=== PATIENT | male | born 1970 | race Caucasian/White ===

== ENCOUNTER 2018-12-07 14:06 | Emergency (ER) | payer MEDICAID ==
[2018-12-07] MEDS ORDERED: IPRATROPIUM/ALBUTEROL 3 ML NEB INH STA (15:30)
--- NOTE | 2018-12-07 15:36 | XRAY Report ---
Reason: cough/wheeze Procedure Date: 12/07/2018 Accession Number: [id number] / [id number] Procedure: XR - Chest 2 View X-Ray CPT Code: 43199 FULL RESULT: EXAM: CHEST RADIOGRAPHY EXAM DATE: 12/07/2018 03:27 PM. CLINICAL HISTORY: Cough/wheeze. COMPARISON: None. TECHNIQUE: 2 views. FINDINGS: Lungs/Pleura: No focal opacities evident. No pleural effusion. No pneumothorax. Normal volumes. Mediastinum: Heart and mediastinal contours are unremarkable. Other: None. IMPRESSION: No acute cardiopulmonary abnormality. RADIA
--- NOTE | 2018-12-07 16:55 | ED Physician Documentation ---
PD HPI DYSPNEA - Stated complaint Stated Complaint: SOA - Chief complaint Chief Complaint: Resp - History obtained from History obtained from: Patient - History of Present Illness Timing - onset: How many weeks ago (has had asthma symptoms related to [place]. Prior asthma but has not had inhaler. Also hisotry of alcoholism and trying to stop drinking but gets shaky. Trying to get into support groups in [place]. Moved recently to [facility].) Timing - duration: Weeks Timing - details: Gradual onset, Still present, Waxing and waning Inciting event(s): Out of meds, Allergic rxn/anaphylaxis Improved by: Inhaler/neb (when he had it) Associated symptoms: Wheezing. No: Fever, Cough, Hemoptysis Similar symptoms before: Diagnosis (asthma) Recently seen: Not recently seen Review of Systems Constitutional: denies: Fever Nose: denies: Rhinorrhea / runny nose, Congestion Throat: denies: Sore throat Cardiac: denies: Chest pain / pressure Respiratory: reports: Dyspnea, Wheezing. denies: Cough GI: denies: Nausea, Vomiting : denies: Dysuria, Frequency PD PAST MEDICAL HISTORY - Past Medical History Past Medical History: Yes Respiratory: Asthma - Present Medications Home Medications: Ambulatory Orders Medication Instructions Recorded Confirmed Albuterol Sulf [Ventolin Hfa 1 - 2 puffs INH Q4HR PRN #1 inhaler 12/07/18 Inhaler] Cetirizine [ZyrTEC] 10 mg PO DAILY #30 tablet 12/07/18 Dexamethasone [Decadron] 4 mg PO DAILY #5 tablet 12/07/18 chlordiazePOXIDE [Librium] 25 mg PO Q6H PRN #30 capsule 12/07/18 cloNIDine [Catapres] 0.1 mg PO BID #30 tablet 12/07/18 - Allergies Allergies/Adverse Reactions: Allergies Allergy/AdvReac Type Severity Reaction Status Date / Time Iodinated Contrast- Oral and Allergy Respiratory Verified 12/07/18 14:14 IV Dye pseudoephedrine Allergy Hallucinati Verified 12/07/18 14:14 ons shellfish derived Allergy Respiratory Verified 12/07/18 14:14 - Social History Does the pt smoke?: No Smoking Status: Never smoker PD ED PE NORMAL - Vitals Vital signs reviewed: Yes - General General: Alert and oriented X 3, No acute distress, Well developed/nourished - HEENT HEENT: Ears normal, Pharynx benign - Neck Neck: Supple, no meningeal sign, No adenopathy - Cardiac Cardiac: RRR, No murmur - Respiratory Respiratory: No respiratory distress, Other (wheezing diffusely, no coarse sounds. ) - Abdomen Abdomen: Soft, Non tender - Derm Derm: Normal color, Warm and dry - Extremities Extremities: No edema, No calf tenderness / cord Results - Vitals Vitals: Oxygen O2 Source Room air PD MEDICAL DECISION MAKING - ED course Complexity details: considered differential (main complaint is exac of asthma. Also saying he would like to stop alcohol but concerned about withdrawal. I offered meds for withdrawal. He is seeking AA and support groups. ), d/w patient Departure - Departure Disposition: 01 Home, Self Care Clinical Impression: Alcoholism /alcohol abuse Acute asthma exacerbation Qualifiers: Asthma severity: mild Asthma persistence: intermittent Qualified Code(s): J45.21 - Mild intermittent asthma with (acute) exacerbation Condition: Stable Record reviewed to determine appropriate education?: Yes Instructions: ED Reactive Airway Disease Follow-Up: [facility] [Provider Group] Prescriptions: Albuterol Sulf [Ventolin Hfa Inhaler] 1 - 2 puffs INH Q4HR PRN #1 inhaler PRN Reason: Shortness Of Air/Wheezing Cetirizine [ZyrTEC] 10 mg PO DAILY #30 tablet chlordiazePOXIDE [Librium] 25 mg PO Q6H PRN #30 capsule PRN Reason: Anxiety cloNIDine [Catapres] 0.1 mg PO BID #30 tablet Dexamethasone [Decadron] 4 mg PO DAILY #5 tablet Comments: Stop alcohol. Use the Librium as needed for withdrawal symptoms enough to not feel shaky and tapering the dose over the following week. Clonidine twice daily to help with symptoms as well and blood pressure. For your asthma, use albuterol inhaler 2 puffs 4 times a day as needed and extra times for wheezing. Decadron steroid daily for 5 more days. Cetirizine antihistamine daily for a month. Follow-up with a local clinic. Also follow-up with some of the substance abuse programs available in [place]. Discharge Date/Time: 12/07/18 17:47
[2018-12-07 17:53] VITALS: BP 157/92
== END 2018-12-07 17:47 | disposition home or self-care (01) ==
LOC: ED 14:06
DX: J45.21 Mild intermittent asthma with (acute) exacerbation (principal); F10.20 Alcohol dependence, uncomplicated
CPT/HCPCS: 71046; 94640; 99283

== ENCOUNTER 2018-12-24 07:32 | Emergency (ER) | payer MEDICAID ==
[2018-12-24] MEDS ORDERED: IPRATROPIUM/ALBUTEROL 3 ML NEB INH STA (07:51)
[2018-12-24] MEDS ORDERED: CHERRY SYRUP 10 ML UDC PO ONE (07:52)
[2018-12-24] MEDS ORDERED: DEXAMETHASONE 10 MG/ML VIAL PO STA (07:52)
--- NOTE | 2018-12-24 07:54 | ED Physician Documentation ---
PD HPI DYSPNEA - Stated complaint Stated Complaint: DIFF BREATHING - Chief complaint Chief Complaint: Resp - History obtained from History obtained from: Patient - History of Present Illness Timing - onset: How many months ago (Onset about three months ago.) Timing - details: Waxing and waning (Worse this morning.) Associated symptoms: Wheezing. No: Fever, Chest pain / discomfort Similar symptoms before: Diagnosis (Asthma) - Treatment prior to arrival Treatment prior to arrival: Here two weeks ago with similar symptoms. - Additional information Additional information: The patient is a 48-year-old asthmatic alcoholic, who presents with difficulty breathing. He has had shortness of breath waxing and waning for the past 3 months, but worse this morning. He has had nonproductive cough. He denies fever or chest pain. Review of his medical records reveals he was seen here 2 weeks ago with similar symptoms. He was treated with nebulizer and steroid therapy. He has been using albuterol inhaler this morning without relief. Review of Systems Constitutional: denies: Fever Ears: denies: Tinnitus/ringing Nose: denies: Congestion Throat: denies: Sore throat Cardiac: denies: Chest pain / pressure Respiratory: reports: Dyspnea, Wheezing. denies: Cough GI: denies: Abdominal Pain, Nausea, Vomiting : denies: Dysuria Skin: denies: Rash Musculoskeletal: denies: Back pain, Extremity pain, Extremity swelling Neurologic: denies: Focal weakness, Numbness, Headache PD PAST MEDICAL HISTORY - Past Medical History Past Medical History: Yes Respiratory: Asthma Endocrine/Autoimmune: None - Past Surgical History Past Surgical History: No - Present Medications Home Medications: Ambulatory Orders Medication Instructions Recorded Confirmed Albuterol Sulf [Ventolin Hfa 1 - 2 puffs INH Q4HR PRN #1 inhaler 12/07/18 Inhaler] Cetirizine [ZyrTEC] 10 mg PO DAILY #30 tablet 12/07/18 cloNIDine [Catapres] 0.1 mg PO BID #30 tablet 12/07/18 Albuterol Sulf [Ventolin Hfa 1 - 2 puffs INH Q4HR PRN #1 inhaler 12/24/18 Inhaler] chlordiazePOXIDE [Librium] 5 mg PO Q6H PRN #10 capsule 12/24/18 predniSONE [Prednisone] 40 mg PO DAILY #10 tablet 12/24/18 - Allergies Allergies/Adverse Reactions: Allergies Allergy/AdvReac Type Severity Reaction Status Date / Time Iodinated Contrast- Oral and Allergy Respiratory Verified 12/24/18 07:37 IV Dye pseudoephedrine Allergy Hallucinati Verified 12/24/18 07:37 ons shellfish derived Allergy Respiratory Verified 12/24/18 07:37 - Social History Does the pt smoke?: No Smoking Status: Former smoker Does the pt drink ETOH?: Yes Does the pt have substance abuse?: No - Immunizations Immunizations are current?: Yes PD ED PE NORMAL - Vitals Vital signs reviewed: Yes (hypertensive) - General General: Alert and oriented X 3, Well developed/nourished - HEENT HEENT: Atraumatic, EOMI, Pharynx benign - Neck Neck: Supple, no meningeal sign, No adenopathy, No JVD - Cardiac Cardiac: RRR, No murmur - Respiratory Respiratory: Other (Diffuse expiratory wheezing.) - Abdomen Abdomen: Soft, Non tender - Back Back: No CVA TTP - Derm Derm: No rash - Extremities Extremities: No edema, No calf tenderness / cord - Neuro Neuro: Alert and oriented X 3, No motor deficit, Normal speech Results - Vitals Vitals: Vital Signs - 24 hr 12/24/18 12/24/18 12/24/18 07:34 08:05 08:41 Temperature 36.8 C Heart Rate 78 89 86 Respiratory 16 16 18 Rate Blood Pressure 158/83 H 136/93 H O2 Saturation 99 98 Oxygen O2 Source Room air PD MEDICAL DECISION MAKING - ED course Complexity details: reviewed old records, re-evaluated patient, considered differential, d/w patient ED course: The patient's presentation is most consistent with acute exacerbation of asthma. His presentation does not suggest pneumonia, congestive heart failure, and I doubt pulmonary embolus. Treatment in the emergency department included administration of DuoNeb nebulizer and 10 mg Decadron orally. His symptoms improved significantly with the above treatment, and on re-auscultation his wheezing has resolved. He is being discharged with prescriptions for albuterol inhaler and 5-day course of prednisone. He is also prescribed a 10 tablet course of Librium to help with his alcohol dependency. He is given contact information for outpatient chemical dependency programs. I discussed with him potentially worrisome signs or symptoms that should prompt reevaluation in the emergency department. Departure - Departure Disposition: 01 Home, Self Care Clinical Impression: Acute asthma exacerbation, Alcoholism /alcohol abuse Condition: Stable Instructions: ED Bronchitis Asthmatic Follow-Up: [facility] [Provider Group] Prescriptions: Albuterol Sulf [Ventolin Hfa Inhaler] 1 - 2 puffs INH Q4HR PRN #1 inhaler PRN Reason: Shortness Of Air/Wheezing chlordiazePOXIDE [Librium] 5 mg PO Q6H PRN #10 capsule PRN Reason: Alcohol Withdrawal predniSONE [Prednisone] 40 mg PO DAILY #10 tablet Comments: Stop smoking cigarettes. Use the albuterol inhaler as prescribed. Take prednisone daily for 5 days as prescribed. Follow-up with your primary physician within 1-2 weeks. Call to schedule an appointment. Return to the emergency department if you develop increasing difficulty breathing, or otherwise worsening symptoms.
[2018-12-24 09:39] VITALS: BP 145/95
== END 2018-12-24 09:25 | disposition home or self-care (01) ==
LOC: ED 07:32
DX: J45.901 Unspecified asthma with (acute) exacerbation (principal); F10.20 Alcohol dependence, uncomplicated; Z87.891 Personal history of nicotine dependence
CPT/HCPCS: 94640; 94664; 99283; A9270

== ENCOUNTER 2018-12-28 01:43 | Emergency (ER) | payer MEDICAID ==
--- NOTE | 2018-12-28 02:34 | XRAY Report ---
Reason: Pain to LE with lac Procedure Date: 12/28/2018 Accession Number: [id number] / [id number] Procedure: XR - Tib/Fib LT CPT Code: FULL RESULT: EXAM: LEFT TIBIA/FIBULA RADIOGRAPHY EXAM DATE: 12/28/2018 02:25 AM. CLINICAL HISTORY: Pain to LE with lac. COMPARISON: None. TECHNIQUE: 2 views. FINDINGS: Bones: Normal. No fracture or bone lesion. Joints: The visualized knee and ankle joints are normal. No effusions. Soft Tissues: Anterior soft tissue laceration. IMPRESSION: Anterior soft tissue laceration. No evidence of fracture. RADIA
--- NOTE | 2018-12-28 02:35 | ED Physician Documentation ---
PD HPI LOWER EXT INJURY - Stated complaint Stated Complaint: L LEG LAC - Chief complaint Chief Complaint: Ext Problem - History obtained from History obtained from: Patient - History of Present Illness PD HPI LOW EXT INJURY LOCATION: Left, Lower leg Type of injury: Blunt / blow Where injury occurred: Home Timing - onset: Enter time (00:00) Timing - details: Abrupt onset Pain level now: 2 Improved by: Rest Worsened by: Moving Similar symptoms before: Has not had sx before Recently seen: Emergency Dept - Additional information Additional information: tripped at home tonight, left leg struck edge of barbesolidar grill, causing l aceration Review of Systems Skin: reports: Laceration (s) Neurologic: denies: Focal weakness, Numbness PD PAST MEDICAL HISTORY - Past Medical History Respiratory: Asthma Endocrine/Autoimmune: None - Past Surgical History Past Surgical History: No - Present Medications Home Medications: Ambulatory Orders Medication Instructions Recorded Confirmed Albuterol Sulf [Ventolin Hfa 1 - 2 puffs INH Q4HR PRN #1 inhaler 12/07/18 Inhaler] Cetirizine [ZyrTEC] 10 mg PO DAILY #30 tablet 12/07/18 cloNIDine [Catapres] 0.1 mg PO BID #30 tablet 12/07/18 Albuterol Sulf [Ventolin Hfa 1 - 2 puffs INH Q4HR PRN #1 inhaler 12/24/18 Inhaler] chlordiazePOXIDE [Librium] 5 mg PO Q6H PRN #10 capsule 12/24/18 predniSONE [Prednisone] 40 mg PO DAILY #10 tablet 12/24/18 Cephalexin [Keflex] 500 mg PO Q6H #19 capsule 12/28/18 Hydrocodone/Acetaminophen 1 each PO Q6HR PRN #10 tablet 12/28/18 [Hydrocodone-Acetamin 5-325 mg] - Allergies Allergies/Adverse Reactions: Allergies Allergy/AdvReac Type Severity Reaction Status Date / Time Iodinated Contrast- Oral and Allergy Respiratory Verified 12/24/18 07:37 IV Dye pseudoephedrine Allergy Hallucinati Verified 12/24/18 07:37 ons shellfish derived Allergy Respiratory Verified 12/24/18 07:37 - Social History Does the pt smoke?: No Smoking Status: Never smoker Does the pt drink ETOH?: Yes Does the pt have substance abuse?: No - Immunizations Immunizations are current?: Yes PD ED PE NORMAL - Vitals Vital signs reviewed: Yes - General General: Alert and oriented X 3, No acute distress, Well developed/nourished - Extremities Extremities: No edema - Neuro Neuro: No motor deficit, No sensory deficit PD ED PE EXPANDED - Extremities MICHELLE LE visual: 1 - laceration (4.5 cm) Results - Vitals Vitals: Vital Signs - 24 hr 12/28/18 12/28/18 02:04 03:33 Temperature 36.2 C L 36.9 C Heart Rate 100 114 H Respiratory 18 18 Rate Blood Pressure 145/87 H 137/104 H O2 Saturation 96 98 Oxygen O2 Source Room air - Rads (name of study) left tib/fib xray Radiology: Prelim report reviewed, See rad report Procedures - Laceration (location) Lower extremity left Anterior Length in cm: 4.5 Wound type: Linear, Into muscle, Clean Neurovascular status: Sensory intact, Motor intact, Vascular intact Tendon involvement: Tendon intact Anesthesia: OTH (patient insists on no anesthetic) Wound Preparation: Chlorhexadine Skin layer closure: Joel Other: Patient tolerated well, No complications, Neurovascular intact, Dressing applied, Tetanus UTD Complexity: Simple PD MEDICAL DECISION MAKING - ED course Complexity details: considered differential, d/w patient Departure - Departure Disposition: 01 Home, Self Care Clinical Impression: Laceration of leg not thigh, left Condition: Good Instructions: ED Laceration All, ED Laceration Ext Sutr Tape Ch Follow-Up: [facility]Provider Group] [facility] [Provider Group] Prescriptions: Hydrocodone/Acetaminophen [Hydrocodone-Acetamin 5-325 mg] 1 each PO Q6HR PRN #10 tablet PRN Reason: Pain Cephalexin [Keflex] 500 mg PO Q6H #19 capsule Comments: Follow up with your doctor in 7-10 days for removal of the joel Discharge Date/Time: 12/28/18 03:39
[2018-12-28] MEDS ORDERED: cephALEXin 250 MG CAPSULE PO STA (03:25)
[2018-12-28] MEDS ORDERED: BACITRACIN OINT TOP STA (03:28)
[2018-12-28] MEDS ORDERED: BACITRACIN OINT TOP ONE (03:33)
[2018-12-28 03:34] VITALS: BP 137/104
== END 2018-12-28 03:39 | disposition home or self-care (01) ==
LOC: ED 01:43
DX: S81.812A Laceration without foreign body, left lower leg, initial encounter (principal); W01.198A Fall on same level from slipping, tripping and stumbling with subsequent striking against other object, initial encounter; Y92.009 Unspecified place in unspecified non-institutional (private) residence as the place of occurrence of the external cause
CPT/HCPCS: 12002; 73590; 99283; A9270

== ENCOUNTER 2019-01-05 12:00 | Emergency (ER) | payer MEDICAID ==
[2019-01-05 12:08] VITALS: BP 147/94
[2019-01-05] MEDS ORDERED: chlordiazePOXIDE 25 MG CAPSULE PO STA ×2 (12:41→12:44)
[2019-01-05] MEDS ORDERED: TETANUS/DIPHTHERIA/PERTUSSIS 0.5 ML SYRINGE IM ONE (12:41)
[2019-01-05] MEDS ORDERED: cephALEXin 250 MG CAPSULE PO STA (12:41)
--- NOTE | 2019-01-05 12:44 | ED Physician Documentation ---
PD HPI LOWER EXT INJURY - Stated complaint Stated Complaint: WOUND CHECK - Chief complaint Chief Complaint: Wound - History obtained from History obtained from: Patient - History of Present Illness PD HPI LOW EXT INJURY LOCATION: Left (He cut himself 8 days ago and got joel to the left lower extremity. Tetanus is unknown. For the last 3 or 4 days he has had redness and increased sensitivity of the wound. He wonders if he might of had fevers but he is also having some alcohol withdrawal symptoms and what he describes could be either. He is slightly shaky now.) Review of Systems Constitutional: reports: Sweats Cardiac: denies: Chest pain / pressure, Palpitations Respiratory: denies: Dyspnea, Cough GI: denies: Abdominal Pain PD PAST MEDICAL HISTORY - Past Medical History Past Medical History: Yes Respiratory: Asthma Endocrine/Autoimmune: None - Past Surgical History Past Surgical History: Yes Ortho: Other - Present Medications Home Medications: Ambulatory Orders Medication Instructions Recorded Confirmed Albuterol Sulf [Ventolin Hfa 1 - 2 puffs INH Q4HR PRN #1 inhaler 12/07/18 Inhaler] Cetirizine [ZyrTEC] 10 mg PO DAILY #30 tablet 12/07/18 cloNIDine [Catapres] 0.1 mg PO BID #30 tablet 12/07/18 Albuterol Sulf [Ventolin Hfa 1 - 2 puffs INH Q4HR PRN #1 inhaler 12/24/18 Inhaler] chlordiazePOXIDE [Librium] 5 mg PO Q6H PRN #10 capsule 12/24/18 predniSONE [Prednisone] 40 mg PO DAILY #10 tablet 12/24/18 Cephalexin [Keflex] 500 mg PO Q6H #19 capsule 12/28/18 Hydrocodone/Acetaminophen 1 each PO Q6HR PRN #10 tablet 12/28/18 [Hydrocodone-Acetamin 5-325 mg] Cephalexin [Keflex] 500 mg PO Q6H #28 capsule 01/05/19 chlordiazePOXIDE [Librium] 5 mg PO Q6H PRN #10 capsule 01/05/19 - Allergies Allergies/Adverse Reactions: Allergies Allergy/AdvReac Type Severity Reaction Status Date / Time Iodinated Contrast- Oral and Allergy Respiratory Verified 12/24/18 07:37 IV Dye pseudoephedrine Allergy Hallucinati Verified 12/24/18 07:37 ons shellfish derived Allergy Respiratory Verified 12/24/18 07:37 - Social History Does the pt smoke?: No Smoking Status: Never smoker Does the pt drink ETOH?: Yes Does the pt have substance abuse?: No - Immunizations Immunizations are current?: Yes - POLST Patient has POLST: No PD ED PE NORMAL - Vitals Vital signs reviewed: Yes - General General: Alert and oriented X 3, No acute distress, Other (Not overtly shaky) - Extremities Extremities: Other (There is a stapled wound to the anterior left rayo with about 2 cm of surrounding cellulitis. Joel were removed during examination and replaced with Steri-Strips. There is no purulent drainage to culture.) - Neuro Neuro: Alert and oriented X 3, Normal speech Results - Vitals Vitals: Vital Signs - 24 hr 01/05/19 01/05/19 12:04 12:07 Temperature 36.7 C 36.7 C Heart Rate 95 95 Respiratory 18 18 Rate Blood Pressure 147/94 H 147/94 H O2 Saturation 96 96 Oxygen O2 Source Room air Departure - Departure Disposition: 01 Home, Self Care Clinical Impression: Wound infection, Alcoholism /alcohol abuse Condition: Good Record reviewed to determine appropriate education?: Yes Instructions: ED Infec Skin Cellulitis, ED Withdrawal Alcohol Prescriptions: Cephalexin [Keflex] 500 mg PO Q6H #28 capsule chlordiazePOXIDE [Librium] 5 mg PO Q6H PRN #10 capsule PRN Reason: shaleticia Comments: He can wash the wound with soap and water, keep it elevated. Return if the redness worsens or if you have fevers. Follow-up with your doctor early next week for wound check.
[2019-01-05] MEDS ORDERED: LORazepam 0.5 MG TABLET PO STA (12:47)
== END 2019-01-05 12:58 | disposition home or self-care (01) ==
LOC: ED 12:00
DX: S81.812D Laceration without foreign body, left lower leg, subsequent encounter (principal); L08.9 Local infection of the skin and subcutaneous tissue, unspecified; F10.10 Alcohol abuse, uncomplicated
CPT/HCPCS: 90471; 90715; 99283; A9270

== ENCOUNTER 2019-03-18 11:20 | Emergency (ER) | payer MEDICAID ==
[2019-03-18 11:25] VITALS: BP 142/90
--- NOTE | 2019-03-18 13:09 | ED Physician Documentation ---
PD HPI URI - Stated complaint Stated Complaint: SOA - Chief complaint Chief Complaint: Resp - History obtained from History obtained from: Patient - History of Present Illness Timing - onset: Other (48-year-old gentleman presents with 2 complaints. He has asthma, needs a refill of his inhaler. He does not feel good feel acutely worse. But because he missed his recent PCP appointment he needs a refill. He also complains of alcohol withdrawal, mild shakes with the last drink of a few days ago and would like some help with that. He declines to talk with the director social welfare.) Review of Systems Constitutional: reports: Sweats. denies: Fever, Chills, Fatigue Cardiac: denies: Chest pain / pressure, Palpitations Respiratory: reports: Dyspnea, Cough. denies: Hemoptysis, Wheezing PD PAST MEDICAL HISTORY - Past Medical History Respiratory: Asthma Endocrine/Autoimmune: None - Past Surgical History Past Surgical History: Yes Ortho: Other - Present Medications Home Medications: Ambulatory Orders Medication Instructions Recorded Confirmed Albuterol Sulf [Ventolin Hfa 1 - 2 puffs INH Q4HR PRN #1 inhaler 12/07/18 Inhaler] Albuterol Sulf [Ventolin Hfa 1 - 2 puffs INH Q4HR PRN #1 inhaler 12/24/18 Inhaler] Albuterol Sulf [Ventolin Hfa 1 - 2 puffs INH Q4HR PRN #1 inhaler 03/18/19 Inhaler] Lorazepam [Ativan] 1 mg PO TID PRN #10 tablet 03/18/19 - Allergies Allergies/Adverse Reactions: Allergies Allergy/AdvReac Type Severity Reaction Status Date / Time Iodinated Contrast- Oral and Allergy Respiratory Verified 12/24/18 07:37 IV Dye pseudoephedrine Allergy Hallucinati Verified 12/24/18 07:37 ons shellfish derived Allergy Respiratory Verified 03/18/19 11:25 - Social History Does the pt smoke?: No Smoking Status: Never smoker Does the pt drink ETOH?: Yes Does the pt have substance abuse?: No Substance Use and Type: Other - Immunizations Immunizations are current?: Yes - POLST Patient has POLST: No PD ED PE NORMAL - Vitals Vital signs reviewed: Yes - General General: Alert and oriented X 3, No acute distress, Other (Not overtly shaky) - HEENT HEENT: PERRL - Neck Neck: Supple, no meningeal sign, No bony TTP - Cardiac Cardiac: RRR, No murmur - Respiratory Respiratory: Other (Modest expiratory wheezes with excellent air motion, nonlabored.) - Abdomen Abdomen: Non tender - Neuro Neuro: Alert and oriented X 3, Normal speech Results - Vitals Vitals: Vital Signs - 24 hr 03/18/19 11:22 Temperature 36.3 C L Heart Rate 73 Respiratory 20 Rate Blood Pressure 142/90 H O2 Saturation 98 Oxygen O2 Source Room air Departure - Departure Disposition: Home, Self Care Clinical Impression: Alcoholism /alcohol abuse Acute asthma exacerbation Qualifiers: Asthma severity: moderate Asthma persistence: persistent Qualified Code(s): J45.41 - Moderate persistent asthma with (acute) exacerbation Condition: Good Record reviewed to determine appropriate education?: Yes Health Concerns: Alcoholism with last drink about 5 days ago and symptoms of modest alcohol withdrawal as well as uncontrolled asthma but declined breathing treatment here. Plan of Treatment: Refills of albuterol and lorazepam. Do not drink alcohol while on lorazepam. Do not drive while on lorazepam. Follow-up with your doctor next Thursday as scheduled. Return for new or worsening symptoms. Care Goals: control of symptoms Assessment: as above Instructions: Asthma Dc, ED Withdrawal Alcohol Prescriptions: Albuterol Sulf [Ventolin Hfa Inhaler] 1 - 2 puffs INH Q4HR PRN #1 inhaler PRN Reason: Shortness Of Air/Wheezing Lorazepam [Ativan] 1 mg PO TID PRN #10 tablet PRN Reason: Anxiety
== END 2019-03-18 13:12 | disposition home or self-care (01) ==
LOC: ED 11:20
DX: F10.230 Alcohol dependence with withdrawal, uncomplicated (principal); J45.41 Moderate persistent asthma with (acute) exacerbation
CPT/HCPCS: 99283

== ENCOUNTER 2019-04-18 11:56 | Emergency (ER) | payer MEDICAID ==
[2019-04-18 12:07] VITALS: BP 132/87
--- NOTE | 2019-04-18 12:39 | ED Physician Documentation ---
PD HPI LOWER EXT INJURY - Stated complaint Stated Complaint: LT ANKLE PX - Chief complaint Chief Complaint: Ext Problem - History obtained from History obtained from: Patient - History of Present Illness PD HPI LOW EXT INJURY LOCATION: Left, Ankle, Foot Type of injury: Twist Where injury occurred: Home Timing - onset: How many days ago (3) Timing - duration: Days (3) Timing - details: Gradual onset Pain level max: 6 Pain level now: 5 Improved by: Rest Worsened by: Moving, Palpating Associated symptoms: Swelling. No: Weakness, Numbness, Tingling Recently seen: Not recently seen Review of Systems Constitutional: denies: Fever, Chills GI: denies: Vomiting, Diarrhea PD PAST MEDICAL HISTORY - Past Medical History Respiratory: Asthma Endocrine/Autoimmune: None - Past Surgical History Past Surgical History: Yes Ortho: Other - Present Medications Home Medications: Ambulatory Orders Medication Instructions Recorded Confirmed Albuterol Sulf [Ventolin Hfa 1 - 2 puffs INH Q4HR PRN #1 inhaler 12/07/18 Inhaler] Albuterol Sulf [Ventolin Hfa 1 - 2 puffs INH Q4HR PRN #1 inhaler 12/24/18 Inhaler] Albuterol Sulf [Ventolin Hfa 1 - 2 puffs INH Q4HR PRN #1 inhaler 03/18/19 Inhaler] Lorazepam [Ativan] 1 mg PO TID PRN #10 tablet 03/18/19 Hydrocodone/Acetaminophen 1 - 2 each PO Q6H PRN #14 tablet 04/18/19 [Hydrocodon-Acetaminophen 5-325] - Allergies Allergies/Adverse Reactions: Allergies Allergy/AdvReac Type Severity Reaction Status Date / Time ibuprofen [From Motrin] Allergy Rash Verified 04/18/19 12:06 Iodinated Contrast- Oral and Allergy Respiratory Verified 12/24/18 07:37 IV Dye pseudoephedrine Allergy Hallucinati Verified 12/24/18 07:37 ons shellfish derived Allergy Respiratory Verified 03/18/19 11:25 - Social History Does the pt smoke?: No Smoking Status: Never smoker Does the pt drink ETOH?: No Does the pt have substance abuse?: No - Immunizations Immunizations are current?: Yes - POLST Patient has POLST: No PD ED PE NORMAL - Vitals Vital signs reviewed: Yes - General General: Alert and oriented X 3, No acute distress - HEENT HEENT: Moist mucous membranes - Neck Neck: Supple, no meningeal sign - Derm Derm: Warm and dry - Extremities Extremities: Other (L ankle - TTP lateral malleolus with mild swellng. also TTP base of 5th MT. NVI.) - Neuro Neuro: Alert and oriented X 3 - Psych Psych: Normal mood, Normal affect Results - Vitals Vitals: Vital Signs - 24 hr 04/18/19 12:04 Temperature 36.5 C Heart Rate 87 Respiratory 18 Rate Blood Pressure 132/87 H O2 Saturation 99 Oxygen O2 Source Room air - Rads (name of study) Left ankle x-ray Radiology: Prelim report reviewed, EMP read contemporaneously, See rad report (No acute fractures) Left foot x-ray Radiology: Prelim report reviewed, EMP read contemporaneously, See rad report (No acute fractures) PD MEDICAL DECISION MAKING - ED course Complexity details: reviewed results, re-evaluated patient, considered dif ferential, d/w patient ED course: 48-year-old male with a left ankle sprain. Placed on crutches and an Aircast. Pt will follow-up with his doctor in 1 week if he is still having symptoms. Patient counseled regarding signs and symptoms for which I believe and urgent re-evaluation would be necessary. Patient with good understanding of and agreement to plan and is comfortable going home at this time This document was made in part using voice recognition software. While efforts are made to proofread this document, sound alike and grammatical errors may occur. Departure - Departure Disposition: 01 Home, Self Care Clinical Impression: Ankle sprain Qualifiers: Encounter type: initial encounter Involved ligament of ankle: unspecified ligament Laterality: left Qualified Code(s): S93.402A - Sprain of unspecified ligament of left ankle, initial encounter Foot sprain Qualifiers: Encounter type: initial encounter Laterality: left Qualified Code(s): S93.602A - Unspecified sprain of left foot, initial encounter Condition: Good Instructions: ED Sprain Ankle W X Ray, ED Sprain Foot Follow-Up: your,doctor in 1 week [Other] Prescriptions: Hydrocodone/Acetaminophen [Hydrocodon-Acetaminophen 5-325] 1 - 2 each PO Q6H PRN #14 tablet PRN Reason: pain Comments: Return if you worsen. You may bear weight as tolerated. Follow up with your doctor in 10-14 days for repeat xrays if you are still having symptoms. Do not drink alcohol or drive while on narcotic pain medicine. Note that many narcotic pain relievers also contain tylenol/acetaminophen. Please ensure that your total dose of acetaminophen from all sources does not exceed 3 grams (3000mg) per day. You may constipated on this medication, take a stool softener such as "Colace" twice a day while you are on it. Also recommend a [id number] laxative such as senna or MiraLAX any day that you do not have a bowel movement. If you received narcotic pain medication in the emergency department, do not drive or operate machinery for the next 24 hours. Discharge Date/Time: 04/18/19 13:40
--- NOTE | 2019-04-18 13:00 | XRAY Report ---
Reason: L ankle pain Procedure Date: 04/18/2019 Accession Number: [id number] / [id number] Procedure: XR - Ankle 3 View LT CPT Code: FULL RESULT: EXAMS: LEFT FOOT AND ANKLE RADIOGRAPHY EXAM DATE: 04/18/2019 12:15 PM. CLINICAL HISTORY: L ankle pain. COMPARISON: 12/28/2018 tibia and fibula radiograph. TECHNIQUE: 3 views each foot and ankle. FINDINGS: Bones: Normal. No fractures or bone lesions in the foot or ankle. Joints: No subluxations or dislocations in the left foot or ankle. Ankle mortise is normally aligned. Moderate ankle joint effusion. Soft Tissues: Moderate left ankle soft tissue swelling noted. No radiopaque foreign bodies are noted. IMPRESSION: 1. No fracture or malalignment. 2. Ankle mortise intact. 3. Moderate left ankle effusion and moderate left ankle swelling. 4. If patient remains symptomatic, recommend radiographs in 10-14 days. [facility]
--- NOTE | 2019-04-18 13:00 | XRAY Report ---
Reason: l foot pain Procedure Date: 04/18/2019 Accession Number: [id number] / [id number] Procedure: XR - Foot 3 View LT CPT Code: FULL RESULT: EXAMS: LEFT FOOT AND ANKLE RADIOGRAPHY EXAM DATE: 04/18/2019 12:15 PM. CLINICAL HISTORY: L ankle pain. COMPARISON: 12/28/2018 tibia and fibula radiograph. TECHNIQUE: 3 views each foot and ankle. FINDINGS: Bones: Normal. No fractures or bone lesions in the foot or ankle. Joints: No subluxations or dislocations in the left foot or ankle. Ankle mortise is normally aligned. Moderate ankle joint effusion. Soft Tissues: Moderate left ankle soft tissue swelling noted. No radiopaque foreign bodies are noted. IMPRESSION: 1. No fracture or malalignment. 2. Ankle mortise intact. 3. Moderate left ankle effusion and moderate left ankle swelling. 4. If patient remains symptomatic, recommend radiographs in 10-14 days. [facility]
== END 2019-04-18 13:40 | disposition home or self-care (01) ==
LOC: ED 11:56
DX: S93.402A Sprain of unspecified ligament of left ankle, initial encounter (principal); S93.602A Unspecified sprain of left foot, initial encounter; X50.1XXA Overexertion from prolonged static or awkward postures, initial encounter; Y92.009 Unspecified place in unspecified non-institutional (private) residence as the place of occurrence of the external cause
CPT/HCPCS: 99283; 99284